=== PATIENT | male | born 1955 | race Caucasian/White ===

== ENCOUNTER 2020-06-09 18:09 | Emergency (ER) | payer BC, MEDICARE ==
[2020-06-09 18:25] VITALS: RESP 18
--- NOTE | 2020-06-09 18:26 | ED ---
General Adult HPI <Barrett Biggs - Last Filed: 06/09/20 18:23> <Aimee Metcalf - Last Filed: 06/09/20 21:18> - General Stated complaint: Fever, Covid + Time Seen by Provider: 06/09/20 18:20 - History of Present Illness Initial comments: Patient was seen as a medical screening for advanced triage purposes: 65-year-old male presents to the emergency department for COVID symptoms x 5 days. Patient reports he has fatigue. He has also been short of breath. Patient states he tested positive at home earlier this week. (Barrett Biggs) 65-year-old male patient presenting to the emergency department today for fever, decreased appetite, difficulty sleeping. States he tested positive for COVID-19 on 06/05/2020. States his been having symptoms for the last 5 days. States he does have a mild intermittent cough and occasional shortness of breath. Denies any nausea or vomiting. Denies diarrhea. Denies any rash. The past medical history significant for atrial fibrillation. Patient denies any recent chest pain, abdominal pain, constipation, back pain, numbness, tingling, dizziness, hematuria, dysuria, urinary urgency, urinary frequency, headache, visual changes, or any other complaints. (Aimee Metcalf) - Related Data Allergies Allergy/AdvReac Type Severity Reaction Status Date / Time ampicillin Allergy Swelling Verified 06/09/20 18:25 Review of Systems ROS Other: All systems not noted in ROS Statement are negative. <Barrett Biggs - Last Filed: 06/09/20 18:23> ROS Other: All systems not noted in ROS Statement are negative. <Aimee Metcalf - Last Filed: 06/09/20 21:18> ROS Statement: Those systems with pertinent positive or pertinent negative responses have been documented in the HPI. General Exam General appearance: alert, in no apparent distress, other Eye exam: Present: normal appearance, PERRL, EOMI. Absent: scleral icterus, conjunctival injection, periorbital swelling ENT exam: Present: normal exam, normal oropharynx, mucous membranes moist Respiratory exam: Present: normal lung sounds bilaterally. Absent: respiratory distress, wheezes, rales, rhonchi, stridor Cardiovascular Exam: Present: normal rhythm, tachycardia, normal heart sounds. Absent: systolic murmur, diastolic murmur, rubs, gallop, clicks GI/Abdominal exam: Present: soft, normal bowel sounds. Absent: distended, tenderness, guarding, rebound, rigid Neurological exam: Present: alert, oriented X3, CN II-XII intact Psychiatric exam: Present: normal affect, normal mood Skin exam: Present: warm, dry, intact, normal color. Absent: rash <Aimee Metcalf - Last Filed: 06/09/20 21:18> Course Vital Signs 06/09/20 06/09/20 18:22 20:10 Temperature 99.4 F 98.2 F Pulse Rate 121 H 102 H Respiratory 18 18 Rate Blood Pressure 114/66 100/67 O2 Sat by Pulse 95 97 Oximetry Medical Decision Making - Radiology Data Radiology results: report reviewed, image reviewed <Aimee Metcalf - Last Filed: 06/09/20 21:18> - Medical Decision Making 65-year-old male patient presents to the emergency department today for evaluation after having a positive COVID-19 test at home. States he was having fever, decreased appetite and difficulty sleeping. Physical examination did reveal clear equal lung sounds. He is in no respiratory distress. Vital signs are satisfactory. He does qualify to receive bamlanivimab treatment. We did discuss this treatment including risks versus benefits. He does agree to receive this. Infusion was given, patient monitored for one hour, had no complications. He'll be discharged home to follow-up with his primary care physician for recheck in 1-2 days. Return parameters were discussed in detail. They verbalize understanding and agree with this plan. Case discussed with my attending Dr. Loredo. (Aimee Metcalf) - Lab Data Lab Results 06/09/20 Range/Units 18:26 Coronavirus (PCR) Detected A (Not Detectd) - Radiology Data One view x-ray of the chest is obtained. Report was reviewed in its entirety. Impression by Dr. Caicedo shows minimal bibasilar atelectasis versus developing infiltrates. (Aimee Metcafl) Disposition <Barrett Biggs - Last Filed: 06/09/20 18:23> Is patient prescribed a controlled substance at d/c from ED?: No Time of Disposition: 22:05 <Aimee Metcalf - Last Filed: 06/09/20 21:18> Clinical Impression: Pneumonia due to COVID-19 virus Disposition: HOME SELF-CARE Condition: Good Instructions (If sedation given, give patient instructions): Coronavirus Disease 2019 (COVID-19), Viral Pneumonia (ED) Additional Instructions: Rest. Increase fluids. Follow-up with the primary care physician for recheck in 1-2 days. Return to the emergency department for any new, worsening, or concerning symptoms. Referrals: Theron Kong MD [Primary Care Provider] - 1-2 days
--- NOTE | 2020-06-09 19:17 | XR ---
EXAMINATION TYPE: XR chest 1V DATE OF EXAM: 06/09/2020 COMPARISON: NONE HISTORY: Shortness of breath and fever. TECHNIQUE: Single frontal view of the chest is obtained. FINDINGS: There is minimal bibasilar hazy opacity. No pleural effusion, or pneumothorax seen. The c ardiac silhouette size is within normal limits. The osseous structures are intact. IMPRESSION: Minimal bibasilar atelectasis versus developing infiltrates.
[2020-06-09 20:11] VITALS: BP 100/67; PULSE 102; TEMP 98.2
[2020-06-09] MEDS ORDERED: ACETAMINOPHEN TAB 325 MG TAB PO STA (20:24)
[2020-06-09] MEDS ORDERED: SODIUM CHLORIDE 0.9% 500 ML 500 ML IV ONE (20:24)
[2020-06-09] MEDS ORDERED: BAMLANIVIMAB (EUA) 700 MG, ETESEVIMAB (EUA) 1,400 MG in SODIUM CHLORIDE 0.9% 50 ML IVPB ONE (21:00)
== END 2020-06-09 21:41 | disposition home or self-care (01) ==
LOC: EC 18:09
DX: U07.1 COVID-19 (principal); J12.82 Pneumonia due to coronavirus disease 2019; I48.91 Unspecified atrial fibrillation
CPT/HCPCS: 87635; 71045; 99285; 96365; Q0245

== ENCOUNTER 2020-06-10 06:33 | Emergency (ER) | payer MEDICARE ==
[2020-06-10] MEDS ORDERED: ACETAMINOPHEN TAB 325 MG TAB PO STA (07:02)
[2020-06-10] MEDS ORDERED: IBUPROFEN 600 MG TAB PO STA (07:03)
[2020-06-10] MEDS ORDERED: IPRATROPIUM-ALBUTEROL 3 ML NEB INHALATION STA (07:03)
--- NOTE | 2020-06-10 07:08 | ED ---
SOB HPI - General Chief Complaint: Shortness of Breath Stated Complaint: Covid+,SOB Time Seen by Provider: 06/10/20 06:52 Source: patient Mode of arrival: ambulatory - History of Present Illness Initial Comments: 65 yo male prsenting for cc of dyspnea. pt states that he tested positive and had BAM performed yesterday. HE states that he continues to feel weak, tired and short of breath. HE states he feels like he cant catch his breath. pt is on coumadin, denies leg swelling, chest pain, jaw pain, arm pain, nausea, vomiting, diarrhea, rashes. Patient has not taken any medications. Patient febrile on arrival at 102.2F. He is saturating well on RA. NO distress. He feels warm to touch. HR elevated - Related Data Home Medications Medication Instructions Recorded Confirmed Cyclobenzaprine [Flexeril] 5 mg PO BID PRN 06/10/20 06/10/20 Folic Acid 1 mg PO HS 06/10/20 06/10/20 Metoprolol Tartrate [Lopressor] 25 mg PO HS 06/10/20 06/10/20 Omeprazole 20 mg PO HS 06/10/20 06/10/20 Warfarin [Coumadin] 5 mg PO HS 06/10/20 06/10/20 metHOTREXate sodium [Methotrexate] 10 mg PO WE 06/10/20 06/10/20 Allergies Allergy/AdvReac Type Severity Reaction Status Date / Time ampicillin Allergy Swelling Verified 06/10/20 07:55 Review of Systems ROS Statement: Those systems with pertinent positive or pertinent negative responses have been documented in the HPI. ROS Other: All systems not noted in ROS Statement are negative. Past Medical History Past Medical History: Atrial Fibrillation, COPD History of Any Multi-Drug Resistant Organisms: None Reported Past Surgical History: Appendectomy Past Psychological History: No Psychological Hx Reported Smoking Status: Never smoker Past Alcohol Use History: None Reported, Occasional Past Drug Use History: Marijuana General Exam - General Exam Comments Initial Comments: General: The patient is awake and alert, in no distress Eye: +3 mm pupils are equal, round and reactive to light, extra-ocular movements are intact. No nystagmus. There is normal conjunctiva bilaterally. No signs of icterus. Ears, nose, mouth and throat: There are moist mucous membranes and no oral lesions. Neck: The neck is supple, there is no tenderness or JVD. Cardiovascular: There is a regular rate and rhythm. No murmur, rub or gallop is appreciated. Respiratory: Lungs are clear to auscultation, respirations are non-labored, breath sounds are equal. No wheezes, stridor, rales, or rhonchi. Gastrointestinal: Soft, non-distended, non-tender abdomen without masses or organomegaly noted. There is no rebound or guarding present. Musculoskeletal: Normal ROM, no tenderness. Strength 5/5. Sensation intact. Radial and DP pulses equal bilaterally 2+. Neurological: A&O x 3. CN II-XII intact grossly, There are no obvious motor or sensory deficits. Coordination appears grossly intact. Speech is normal. Skin: Skin is warm and dry and no rashes or lesions are noted. No LE edema. Psychiatric: Cooperative, appropriate mood & affect, normal judgment. Course Vital Signs 06/10/20 06/10/20 06/10/20 06:46 07:01 07:44 Temperature 98.7 F 102.2 F H Pulse Rate 117 H 130 H Respiratory 22 24 Rate Blood Pressure 117/77 130/66 O2 Sat by Pulse 98 97 Oximetry 06/10/20 06/10/20 06/10/20 08:29 08:30 09:46 Temperature 100.2 F H 99.2 F Pulse Rate 120 H 99 Respiratory 20 19 Rate Blood Pressure O2 Sat by Pulse 97 Oximetry Medical Decision Making - Medical Decision Making Labs stable. HR improved with fver treatment and fluids. pt appears to be feeling btter and stated so on reevaluation. patient case discussed by attending provider who is agreeable to care plan at discharge at this time. Patient is to return for any worsening shortness of breath chest pain or extremity swelling. - Lab Data Result diagrams: 06/10/20 07:10 06/10/20 07:10 Lab Results 06/10/20 06/10/20 06/10/20 Range/Units 07:03 07:10 07:10 WBC 5.2 (3.8-10.6) k/uL RBC 4.16 L (4.30-5.90) m/uL Hgb 14.1 (13.0-17.5) gm/dL Hct 42.8 (39.0-53.0) % MCV 102.7 H (80.0-100.0) fL MCH 33.9 (25.0-35.0) pg MCHC 33.0 (31.0-37.0) g/dL RDW 14.1 (11.5-15.5) % Plt Count 186 (150-450) k/uL MPV 7.6 Neutrophils % 90 % Lymphocytes % 6 % Monocytes % 3 % Eosinophils % 0 % Basophils % 0 % Neutrophils # 4.7 (1.3-7.7) k/uL Lymphocytes # 0.3 L (1.0-4.8) k/uL Monocytes # 0.2 (0-1.0) k/uL Eosinophils # 0.0 (0-0.7) k/uL Basophils # 0.0 (0-0.2) k/uL Macrocytosis Slight PT 15.9 H (9.0-12.0) sec INR 1.6 H (<1.2) APTT 30.2 H (22.0-30.0) sec Sodium (137-145) mmol/L Potassium (3.5-5.1) mmol/L Chloride (98-107) mmol/L Carbon Dioxide (22-30) mmol/L Anion Gap mmol/L BUN (9-20) mg/dL Creatinine (0.66-1.25) mg/dL Est GFR (CKD-EPI)AfAm (>60 ml/min/1.73 sqM) Est GFR (CKD-EPI)NonAf (>60 ml/min/1.73 sqM) Glucose (74-99) mg/dL Plasma Lactic Acid Heath (0.7-2.0) mmol/L Calcium (8.4-10.2) mg/dL Magnesium (1.6-2.3) mg/dL Total Bilirubin (0.2-1.3) mg/dL AST (17-59) U/L ALT (4-49) U/L Alkaline Phosphatase (38-126) U/L Lactate Dehydrogenase (313-618) U/L Troponin I (0.000-0.034) ng/mL C-Reactive Protein (<10.0) mg/L NT-Pro-B Natriuret Pep 914 pg/mL Total Protein (6.3-8.2) g/dL Albumin (3.5-5.0) g/dL 06/10/20 06/10/20 06/10/20 Range/Units 07:10 07:10 07:10 WBC (3.8-10.6) k/uL RBC (4.30-5.90) m/uL Hgb (13.0-17.5) gm/dL Hct (39.0-53.0) % MCV (80.0-100.0) fL MCH (25.0-35.0) pg MCHC (31.0-37.0) g/dL RDW (11.5-15.5) % Plt Count (150-450) k/uL MPV Neutrophils % % Lymphocytes % % Monocytes % % Eosinophils % % Basophils % % Neutrophils # (1.3-7.7) k/uL Lymphocytes # (1.0-4.8) k/uL Monocytes # (0-1.0) k/uL Eosinophils # (0-0.7) k/uL Basophils # (0-0.2) k/uL Macrocytosis PT (9.0-12.0) sec INR (<1.2) APTT (22.0-30.0) sec Sodium 132 L (137-145) mmol/L Potassium 4.9 (3.5-5.1) mmol/L Chloride 100 (98-107) mmol/L Carbon Dioxide 22 (22-30) mmol/L Anion Gap 10 mmol/L BUN 10 (9-20) mg/dL Creatinine 0.91 (0.66-1.25) mg/dL Est GFR (CKD-EPI)AfAm >90 (>60 ml/min/1.73 sqM) Est GFR (CKD-EPI)NonAf 87 (>60 ml/min/1.73 sqM) Glucose 164 H (74-99) mg/dL Plasma Lactic Acid Heath 1.5 (0.7-2.0) mmol/L Calcium 8.4 (8.4-10.2) mg/dL Magnesium 1.6 (1.6-2.3) mg/dL Total Bilirubin 0.5 (0.2-1.3) mg/dL AST 28 (17-59) U/L ALT 18 (4-49) U/L Alkaline Phosphatase 59 (38-126) U/L Lactate Dehydrogenase 592 (313-618) U/L Troponin I <0.012 (0.000-0.034) ng/mL C-Reactive Protein 79.8 H (<10.0) mg/L NT-Pro-B Natriuret Pep pg/mL Total Protein 7.0 (6.3-8.2) g/dL Albumin 3.9 (3.5-5.0) g/dL Disposition Clinical Impression: COVID-19, Fever, Dyspnea Disposition: HOME SELF-CARE Condition: Good Instructions (If sedation given, give patient instructions): Coronavirus Disease 2019 (COVID-19) Additional Instructions: Please use medication as discussed. Please follow-up with family doctor in the next 2 days. continue coumadin. Please return to emergency room if the symptoms increase or worsen or for any other concerns. Is patient prescribed a controlled substance at d/c from ED?: No Referrals: Theron Kong MD [Primary Care Provider] - 1-2 days Time of Disposition: 10:02
[2020-06-10] MEDS ORDERED: SODIUM CHLORIDE 0.9% 500 ML 500 ML IV ONE ×2 (07:19→08:36)
--- NOTE | 2020-06-10 07:29 | XR ---
EXAMINATION TYPE: XR chest 1V portable DATE OF EXAM: 06/10/2020 COMPARISON: Chest x-ray from yesterday HISTORY: Difficulty breathing and cough. TECHNIQUE: Single AP portable frontal upright view of the chest is obtained. FINDINGS: There is diminished inspiration on current study with new patchy right basilar opacity. T he cardiac silhouette size is more prominent and enlarged. Overlying EKG leads current study. The o sseous structures are intact. IMPRESSION: Diminished inspiration with new patchy right basilar atelectasis and/or infiltrate.
[2020-06-10 07:45] LABS: Basophils % (A) 0 %; Eosinophils % (A) 0 %; HCT 42.8 % (39.0-53.0); HGB 14.1 gm/dL (13.0-17.5); Lymphocytes # (A) 0.3 k/uL (1.0-4.8); Lymphocytes % (A) 6 %; MCH 33.9 pg (25.0-35.0); MCV 102.7 fL (80.0-100.0); Macrocytosis Slight; Mean Platelet Volume 7.6; Monocytes # (A) 0.2 k/uL (0-1.0); Monocytes % (A) 3 %; Neutrophils # (A) 4.7 k/uL (1.3-7.7); Neutrophils % (A) 90 %; Platelet Count 186 k/uL (150-450); RBC 4.16 m/uL (4.30-5.90); RDW 14.1 % (11.5-15.5); WBC 5.2 k/uL (3.8-10.6)
[2020-06-10 07:54] LABS: INR 1.6 (<1.2); Partial Thromboplastin Time 30.2 sec (22.0-30.0); Prothrombin Time 15.9 sec (9.0-12.0)
[2020-06-10 07:55] LABS: ALT 18 U/L (4-49); AST 28 U/L (17-59); African American GFR (CKD) >90 (>60 ml/min/1.73 sqM); Albumin 3.9 g/dL (3.5-5.0); Alkaline Phosphatase 59 U/L (38-126); Anion Gap 10 mmol/L; Blood Urea Nitrogen 10 mg/dL (9-20); C Reactive Protein 79.8 mg/L (<10.0); Calcium 8.4 mg/dL (8.4-10.2); Carbon Dioxide 22 mmol/L (22-30); Chloride 100 mmol/L (98-107); Glucose 164 mg/dL (74-99); LDH 592 U/L (313-618); Magnesium 1.6 mg/dL (1.6-2.3); Non-African American GFR(CKD) 87 (>60 ml/min/1.73 sqM); Potassium 4.9 mmol/L (3.5-5.1); Sodium 132 mmol/L (137-145); Total Bilirubin 0.5 mg/dL (0.2-1.3)
[2020-06-10] MEDS ORDERED: ALBUTEROL HFA INHALER INHALATION STA (08:03)
[2020-06-10 08:05] VITALS: BP 130/66
[2020-06-10] MEDS ORDERED: SODIUM CHLORIDE 0.9% 1,000 ML IV SCH (08:45)
[2020-06-10 09:47] VITALS: PULSE 99; RESP 19; TEMP 99.2
[2020-06-10 11:49] LABS: Ferritin 424.3 ng/mL (22.0-322.0)
== END 2020-06-10 10:09 | disposition home or self-care (01) ==
LOC: EC 06:33
DX: U07.1 COVID-19 (principal); I48.91 Unspecified atrial fibrillation; Z79.01 Long term (current) use of anticoagulants; Z79.899 Other long term (current) drug therapy; Z88.1 Allergy status to other antibiotic agents
CPT/HCPCS: 36415; 71045; 80053; 82728; 83605; 83615; 83735; 83880; 84145; 84484; 85025; 85610; 85730; 86140; 93005; 94640; 96360; 99285